=== PATIENT | female | born 1960 | race African-American/Black ===

== ENCOUNTER 2018-04-20 17:14 | Emergency (ER) | payer OTHER ==
[2018-04-20] MEDS ORDERED: ONDANSETRON *ODT* 4 MG TABLET SL ONE ×2 (17:18→21:54)
--- NOTE | 2018-04-20 17:18 | PDOC ---
Rapid Medical Evaluation Time Seen by Provider: 04/20/18 17:15 Medical Evaluation: Allergies Allergy/AdvReac Type Severity Reaction Status Date / Time No Known Allergies Allergy Unverified 06/10/12 19:06 04/20/18 17:15 I performed a brief in-person evaluation of this patient. Chief complaint: Abdominal pain and nausea. Hx diverticulosis. Pertinent physical exam findings: In distress secondary to pain. No focal abdominal tenderness. I have ordered the following: EKG, CBC, CMP, lipase, UA/culture. Patient will proceed to the ED for further evaluation. Discharge Disposition - Diagnosis Nausea - Referrals - Patient Instructions - Post Discharge Activity
[2018-04-20 17:20] VITALS: BMI 29.2
[2018-04-20] MEDS ORDERED: ONDANSETRON *ODT* 4 MG TABLET ONE ×2 (17:20→22:09)
--- NOTE | 2018-04-20 17:28 | PDOC ---
History of Present Illness - General Chief Complaint: Pain Stated Complaint: STOMACH PAINS Time Seen by Provider: 04/20/18 17:15 - History of Present Illness Initial Comments: 58 year old female with history of myasthenia gravis (s/p thymectomy and on daily prednisone 20MG) presenting with nausea, vomiting, and abdominal discomfort for the past week. Upon detailed questioning, patient was stopped her cellcept (mycofenalate mofetil) 2 months ago becuase of insurance issues but then restarted it approximately one week ago. She recalls that these symptoms started after the re-initiation of cellcept. The vomiting is NBNB and and abdominal discomfort is mostly left upper quadrant. She has had some diarrhea over the last few days as well but no BMs over the last day. She does have some chills occasionally. Denies any fevers, chest pain, visual symptoms, or urinary symptoms. 04/20/18 17:49 Past History - Past Medical History Allergies/Adverse Reactions: Allergies Allergy/AdvReac Type Severity Reaction Status Date / Time No Known Allergies Allergy Unverified 04/20/18 17:17 Home Medications: Ambulatory Orders Mycophenolate Mofetil [Cellcept] 500 mg PO DAILY 06/10/12 predniSONE [Deltasone -] 20 mg PO DAILY 06/10/12 COPD: No Other medical history: diverticulosis, myesthenia gravis - Suicide/Smoking/Psychosocial Hx Smoking Status: No Smoking History: Former smoker Have you smoked in the past 12 months: No Number of Cigarettes Smoked Daily: 0 If you are a former smoker, when did you quit?: 25 years ago Information on smoking cessation initiated: No Hx Alcohol Use: No Drug/Substance Use Hx: No Substance Use Type: None Review of Systems - Review of Systems Constitutional: Yes: Chills. No: Diaphoresis, Fever, Loss of Appetite HEENTM: No: Blurred Vision, Tearing, Double Vision Respiratory: No: Cough, Orthopnea, Shortness of Breath Cardiac (ROS): No: Chest Pain, Irregular Heart Rate, Lightheadedness, Palpitations, Syncope, Chest Tightness ABD/GI: Yes: Diarrhea, Nausea, Poor Fluid Intake, Vomiting, Abdominal cramping. No: Blood Streaked Bowels, Tarry Stools : No: Dysuria, Discharge, Flank Pain, Hematuria, Testicular Mass Musculoskeletal: No: Back Pain, Joint Pain, Joint Swelling Integumentary: No: Lesions, Lumps, Pallor Neurological: No: Headache, Numbness, Paresthesia Psychiatric: No: Anxiety, Depression Hematologic/Lymphatic: No: Anemia, Blood Clots, Easy Bleeding *Physical Exam - Vital Signs Last Vital Signs Temp Pulse Resp BP Pulse Ox 99.1 F 100 H 20 150/76 100 04/20/18 17:17 04/20/18 17:17 04/20/18 17:17 04/20/18 17:17 04/20/18 17:17 - Physical Exam General Appearance: Yes: Nourished, Appropriately Dressed. No: Apparent Distress HEENT: positive: EOMI, TISHA, Normal Voice. negative: Normal ENT Inspection ( dry mucous membranes) Neck: positive: Trachea midline, Normal Thyroid, Supple. negative: Tender, Rigid Respiratory/Chest: positive: Lungs Clear, Normal Breath Sounds. negative: Chest Tender, Respiratory Distress, Accessory Muscle Use Cardiovascular: positive: Regular Rhythm, Regular Rate Gastrointestinal/Abdominal: positive: Flat, Soft, Increased Bowel Sounds. negative: Normal Bowel Sounds, Tender Lymphatic: negative: Adenopathy, Tenderness Musculoskeletal: positive: Normal Inspection. negative: Decreased Range of Motion Extremity: positive: Normal Capillary Refill, Normal Inspection, Normal Range of Motion. negative: Tender Integumentary: positive: Normal Color, Dry, Warm Neurologic: positive: Fully Oriented, Alert, Normal Mood/Affect, Normal Response , Motor Strength 5/5 Moderate Sedation - Procedure Monitoring Vital Signs: Procedure Monitoring Vital Signs Temperature 99.1 F 04/20/18 17:17 Pulse Rate 100 H 04/20/18 17:17 Respiratory Rate 20 04/20/18 17:17 Blood Pressure 150/76 04/20/18 17:17 O2 Sat by Pulse Oximetry (%) 100 04/20/18 17:17 ED Treatment Course - LABORATORY CBC & Chemistry Diagram: 04/20/18 17:30 04/20/18 17:30 - Medications Given in the ED: ED Medications Discontinued Medications Generic Name Dose Route Start Last Admin Trade Name Freq PRN Reason Stop Dose Admin Ondansetron HCl 4 mg 04/20/18 17:18 04/20/18 17:20 Zofran Odt - SL 04/20/18 17:19 4 mg ONCE ONE Administration Medical Decision Making - Medical Decision Making 58 year old with nausea, vomiting, and diarrhea after restarting her mycophenolate mofetil . However, she also has history of diverticulitis so this is an other diagnosis that needs to be evaluated. Labs WNL, UA pending, and patient given IV NS, zofran, Pepcid/ Maalox with good relief of her symptoms. CT abdomen/ pelvis with iv contrast pending on sign out. 04/20/18 18:32 *DC/Admit/Observation/Transfer Diagnosis at time of Disposition: Nausea & vomiting Qualifiers: Vomiting type: unspecified Vomiting Intractability: non-intractable Qualified Code(s): R11.2 - Nausea with vomiting, unspecified - Discharge Dispostion Disposition: HOME Condition at time of disposition: Improved Decision to Admit order: No - Referrals Referrals: Brionna Sim MD [Primary Care Provider] - - Patient Instructions - Post Discharge Activity
[2018-04-20 17:42] LABS: BASO % 0.4 % (0-2.0); EOS % 0.6 % (0-4.5); HEMATOCRIT 38.9 % (32.4-45.2); HEMOGLOBIN 13.3 GM/dL (10.7-15.3); LYMPH % 5.8 % (8-40); MCH 31.9 pg (25.7-33.7); MCHC 34.3 g/dl (32.0-36.0); MEAN PLT VOLUME 8.3 fl (7.5-11.1); MONO % 8.5 % (3.8-10.2); NEUT % 84.7 % (42.8-82.8); PLATELET COUNT 255 K/MM3 (134-434); RBC 4.18 M/mm3 (3.60-5.2); RDW 14.2 % (11.6-15.6); WHITE BLOOD COUNT 8.4 K/mm3 (4.0-10.0)
[2018-04-20] MEDS ORDERED: SODIUM CHLORIDE 0.9% 500 ML INFUS.BAG IV ONE (17:46)
[2018-04-20] MEDS ORDERED: MAG HYDROX/AL HYDROX/SIMETH 30 ML UNIT-DOSE CUP PO ONE (17:57)
[2018-04-20] MEDS ORDERED: FAMOTIDINE 20 MG/50 ML IVPB 20 MG/50 ML MG IVPB ONE ×2 (17:57→18:19)
[2018-04-20 18:16] LABS: ALBUMIN 4.2 g/dl (3.4-5.0); ALK PHOS 70 U/L (45-117); ANION GAP 8 MMOL/L (8-16); BILIRUBIN,TOTAL 1.1 mg/dL (0.2-1); BLOOD UREA NITROGEN 20 mg/dL (7-18); CALCIUM 8.2 mg/dL (8.5-10.1); CHLORIDE 103 mmol/L (98-107); CO2 29 mmol/L (21-32); CREATININE 0.8 mg/dL (0.55-1.3); GLUCOSE,RANDOM 112 mg/dL (74-106); LIPASE 110 U/L (73-393); POTASSIUM 3.6 mmol/L (3.5-5.1); SGOT/AST 14 U/L (15-37); SGPT/ALT 29 U/L (13-61); SODIUM 140 mmol/L (136-145)
[2018-04-20] MEDS ORDERED: MAG HYDROX/AL HYDROX/SIMETH 30 ML UNIT-DOSE CUP ONE (18:19)
--- NOTE | 2018-04-20 18:20 | PDOC ---
Attending Attestation - HPI HPI: 04/20/18 18:27 The patient is a 58 year old female, with a significant past medical history of myasthenia gravis (s/p thymectomy, on daily prednisone 20mg) and diverticulitis , who presents to the emergency department with,1 week of nausea, vomiting, and diffuse abdominal pain. Patient recently came off her Cellcept for a month (due to insurance complications) and just prior to the onset of her symptoms restarted her medications at her normal dosage. She denies recent fevers, chills, headache or dizziness. She denies recent diarrhea or constipation. She denies recent dysuria, frequency, urgency or hematuria. She denies recent chest pain or shortness of breath. Allergies: NKDA Primary Care Physician: Dr. Sim <Melani Landeros - Last Filed: 04/20/18 18:27> - Resident Resident Name: Cristina Lemus - ED Attending Attestation I have performed the following: I have examined & evaluated the patient, The case was reviewed & discussed with the resident, I agree w/resident's findings & plan, Exceptions are as noted - Physicial Exam PE: GENERAL: Awake, alert, and fully oriented, in no acute distress HEAD: No signs of trauma EYES: PERRLA, EOMI, sclera anicteric, conjunctiva clear ENT: Auricles normal inspection, hearing grossly normal, nares patent, oropharynx clear without exudates. Dry mucosa NECK: Normal ROM, supple, no lymphadenopathy, JVD, or masses LUNGS: Breath sounds equal, clear to auscultation bilaterally. No wheezes, and no crackles HEART: Regular rate and rhythm, normal S1 and S2, no murmurs, rubs or gallops ABDOMEN: Soft, +LUQ tenderness, normoactive bowel sounds. +Guarding, no rebound. No masses EXTREMITIES: Normal range of motion, no edema. No clubbing or cyanosis. No cords, erythema, or tenderness NEUROLOGICAL: Cranial nerves II through XII grossly intact. Normal speech, normal gait. Motor and sensation intact SKIN: Warm, Dry, normal turgor, no rashes or lesions noted. - Medical Decision Making Pt with 99.1 temp orally, will check rectal temp. She states that the vomiting started a few days after restarting her mycophenolate, so while it may be a medication side effect, that would not be the most likely explanation. Will obtain CT a/p to further evaluate. <Nelda Oviedo - Last Filed: 04/21/18 07:46> Attestations - Attestations 04/20/18 18:27 Documentation prepared by Melani Landeros, acting as certified medical biller for Nelda Oviedo MD. <Melani Landeros - Last Filed: 04/20/18 18:27>
[2018-04-20 19:29] LABS: URINE APPEARANCE CLEAR; URINE BILIRUBIN NEGATIVE (<2.0 mg/dL); URINE COLOR STRAW; URINE GLUCOSE (UA) NEGATIVE (NEGATIVE); URINE KETONE NEGATIVE (NEGATIVE); URINE LEUK ESTERASE NEGATIVE (NEGATIVE); URINE NITRITE NEGATIVE (NEGATIVE); URINE PROTEIN NEGATIVE (NEGATIVE); URINE UROBILINOGEN NEGATIVE mg/dL (0.2-1.0)
[2018-04-20 19:31] LABS: EPI CELLS RARE /HPF (FEW); URINE MUCUS RARE
[2018-04-20] MEDS ORDERED: METOCLOPRAMIDE HCL INJECTION 10 MG/2 ML VIAL IVPUSH ONE (19:39)
--- NOTE | 2018-04-20 19:40 | PDOC ---
*Physical Exam - Vital Signs Last Vital Signs Temp Pulse Resp BP Pulse Ox 99.1 F 100 H 20 150/76 100 04/20/18 17:17 04/20/18 17:17 04/20/18 17:17 04/20/18 17:17 04/20/18 17:17 - Physical Exam General Appearance: Yes: Nourished HEENT: positive: Normal Voice, Hearing Grossly Normal Neck: positive: Trachea midline, Supple Gastrointestinal/Abdominal: positive: Other (Initial exam: LLQ rebound; Repeat exam: no TTP, no peritoneal sign) Extremity: positive: Normal Capillary Refill, Normal Inspection Integumentary: positive: Normal Color, Dry, Warm Neurologic: positive: Fully Oriented, Alert Heart Score/ECG Review - ECG Impressions Comment:: 04/20/18 21:27 NSR HR 82, no JALEEL/STD/TWI ED Treatment Course - LABORATORY CBC & Chemistry Diagram: 04/20/18 17:30 04/20/18 17:30 - ADDITIONAL ORDERS Additional order review: Laboratory Results 04/20/18 04/20/18 19:20 17:30 Sodium 140 Potassium 3.6 Chloride 103 Carbon Dioxide 29 Anion Gap 8 BUN 20 H Creatinine 0.8 Creat Clearance w eGFR > 60 Random Glucose 112 H Calcium 8.2 L Total Bilirubin 1.1 H AST 14 L ALT 29 Alkaline Phosphatase 70 Total Protein 7.0 Albumin 4.2 Lipase 110 Urine Color Straw Urine Appearance Clear Urine pH 6.0 Ur Specific [place] 1.016 Urine Protein Negative Urine Glucose (UA) Negative Urine Ketones Negative Urine Blood 2+ H Urine Nitrite Negative Urine Bilirubin Negative Urine Urobilinogen Negative Ur Leukocyte Esterase Negative Urine WBC (Auto) <1 Urine RBC (Auto) 3 Ur Epithelial Cells Rare Urine Mucus Rare 04/20/18 17:30 RBC 4.18 MCV 93.0 MCHC 34.3 RDW 14.2 MPV 8.3 Neutrophils % 84.7 H Lymphocytes % 5.8 L Monocytes % 8.5 Eosinophils % 0.6 Basophils % 0.4 - Medications Given in the ED: ED Medications Discontinued Medications Generic Name Dose Route Start Last Admin Trade Name Freq PRN Reason Stop Dose Admin Al Hydroxide/Mg Hydroxide 30 ml 04/20/18 17:57 04/20/18 18:25 Mylanta Oral Suspension - PO 04/20/18 17:58 30 ml ONCE ONE Administration Famotidine/Sodium Chloride 20 mg in 50 mls @ 100 mls/hr 04/20/18 17:57 18:25 Pepcid 20 Mg Premixed Ivpb - IVPB 04/20/18 18:26 100 mls/hr ONCE ONE Administration Ondansetron HCl 4 mg 04/20/18 17:18 04/20/18 17:20 Zofran Odt - SL 04/20/18 17:19 4 mg ONCE ONE Administration Sodium Chloride 1,000 ml 04/20/18 17:46 04/20/18 18:12 Normal Saline - IV 04/20/18 17:47 1,000 ml ONCE ONE Administration Medical Decision Making - Medical Decision Making 04/20/18 19:39 Patient signed out by Dr. Lemus (Resident) and Dr. Oviedo (Attending) 58 year old female with a PMH of MG (s/p thymectomy, Prednisone (20 mg QD)) and diverticulitis presents w/1 week h/o N/V, diffuse abdominal pain. Non- adherence to Cellcept, associates SiSx with recently restarting her medication. Basic labs and belly labs unremarkable. UA and CT Abdomen pending. 04/20/18 19:49 Patient reassessed @ bedside. Continues to c/o pain, nausea and 1 episode of emesis. My belly exam shows peritoneal sign (rebound) in LLQ. S/p 4 mg Zofran. Will give Reglan. CT scan pending 04/20/18 19:54 UA shows 2+ blood, rare epithelial cells Patient @ CT 04/20/18 20:[address] shows no diverticulitis 04/20/18 20:58 CT negative for diverticulitis Patient reassessed @ bedside VSS Symptomatically improved At this time, suspect patient's SiSx 2/2 to restarting her Cellcept as diagnosis of exclusion, however to r/o abdominal pain N/V as anginal equivalent , will obtain Troponin and repeat EKG. 04/20/18 21:26 Repeat EKG shows NSR HR 82, no JALEEL/STD/TWI - non ischemic EKG 04/20/18 21:54 Troponin (-) Patient discharged home with return precautions, neurology follow-up and GI referral. Clinical Impression: N/V as medication side effect I discussed the physical exam findings, ancillary test results and final diagnoses with the patient. I answered all of the patient's questions. The patient was satisfied with the care received and felt comfortable with the discharge plan and treatment plan. The patient will return to the Emergency Department with any new, persistent or worsening symptoms. *DC/Admit/Observation/Transfer Diagnosis at time of Disposition: Nausea & vomiting Qualifiers: Vomiting type: unspecified Vomiting Intractability: non-intractable Qualified Code(s): R11.2 - Nausea with vomiting, unspecified - Discharge Dispostion Disposition: HOME Condition at time of disposition: Improved Decision to Admit order: No - Referrals Referrals: Brionna Sim MD [Primary Care Provider] - Dheeraj Starr [Non Staff, Medical] - - Patient Instructions Additional Instructions: You were evaluated today for abdominal pain, nausea/vomiting. All of your labs, a cat scan of your abdomen and your urine showed no concerning findings. At this time you are safe for discharge home. Please follow up with your neurologist, Dr. Starr, in the next three days regarding your Myasthenia Gravis medications. Your care is not complete until are evaluated by neurology. We are also providing a referral to a hospice coordinator should your abdominal pain persist. You may also call your insurance company for a list of doctors. Return to the Emergency Department for any new/worsening/concerning symptoms. - Post Discharge Activity Forms/Work/School Notes: Back to Work
[2018-04-20] MEDS ORDERED: METOCLOPRAMIDE HCL INJECTION 10 MG/2 ML VIAL ONE (19:42)
[2018-04-20 22:20] VITALS: BP 140/72; PULSE 85; TEMP 98.7
--- NOTE | 2018-04-21 11:53 | EKG ---
Test Reason : Blood Pressure : / mmHG Vent. Rate : 082 BPM Atrial Rate : 082 BPM P-R Int : 174 ms QRS Dur : 082 ms QT Int : 370 ms P-R-T Axes : 065 -12 023 degrees QTc Int : 432 ms NORMAL SINUS RHYTHM POSSIBLE ANTERIOR INFARCT (CITED ON OR BEFORE 20-APR-2018) ABNORMAL ECG WHEN COMPARED WITH ECG OF 20-APR-2018 17:52, PREMATURE VENTRICULAR COMPLEXES ARE NO LONGER PRESENT QT HAS SHORTENED Confirmed by MD CHYNA, TANMAY ([id number]) on 04/21/2018 11:53:10 AM Referred By: Confirmed By:TANMAY CLEMENTE MD
--- NOTE | 2018-04-23 11:57 | EKG ---
Test Reason : Blood Pressure : / mmHG Vent. Rate : 100 BPM Atrial Rate : 079 BPM P-R Int : 180 ms QRS Dur : 090 ms QT Int : 384 ms P-R-T Axes : 037 -10 014 degrees QTc Int : 495 ms POOR DATA QUALITY, INTERPRETATION MAY BE ADVERSELY AFFECTED SINUS RHYTHM WITH FREQUENT and consecutive PREMATURE VENTRICULAR COMPLEXES MINIMAL VOLTAGE CRITERIA FOR LVH, MAY BE NORMAL VARIANT POSSIBLE ANTERIOR INFARCT , AGE UNDETERMINED ABNORMAL ECG NO PREVIOUS ECGS AVAILABLE Confirmed by EMILY SALAZAR MD ([id number]) on 04/23/2018 11:57:12 AM Referred By: Confirmed By:EMILY SALAZAR MD
== END 2018-04-20 22:20 | disposition home or self-care (01) ==
LOC: JER 17:14
PROC: 3E033GC Introduction of Other Therapeutic Substance into Peripheral Vein, Percutaneous Approach (ICD-10-PCS; principal; 2018-04-20)
PROC: 3E033GC Introduction of Other Therapeutic Substance into Peripheral Vein, Percutaneous Approach (ICD-10-PCS; 2018-04-20)
DX: R11.2 Nausea with vomiting, unspecified (principal); G70.00 Myasthenia gravis without (acute) exacerbation; Z79.52 Long term (current) use of systemic steroids; Z87.19 Personal history of other diseases of the digestive system; E89.89 Other postprocedural endocrine and metabolic complications and disorders
CPT/HCPCS: 36415; 74177-TC; 80053; 81003; 81015; 82550; 82553; 83690; 84484; 85025; 87086; 93005; 93010; 99281-25; Q0162

== ENCOUNTER 2020-01-03 10:39 | Emergency (ER) | payer OTHER ==
--- NOTE | 2020-01-03 10:47 | PDOC ---
Rapid Medical Evaluation Time Seen by Provider: 01/03/20 10:44 Medical Evaluation: Allergies Allergy/AdvReac Type Severity Reaction Status Date / Time No Known Allergies Allergy Verified 01/03/20 10:42 01/03/20 10:44 CC: rt breast soreness with drainage x 3 weeks, had breast reduction in 2005 and noticed opening at incision line. Has mammo and u/s on the at [facility]. Exam: noted indented area to rt breast incsion line centrally. no active drainage. area firm plan: u/s, ? abx Discharge Disposition - Diagnosis Soreness breast - Referrals - Patient Instructions - Post Discharge Activity
[2020-01-03 11:00] VITALS: BP 150/100; PULSE 99; TEMP 98.8; BMI 28.3
--- OUTSIDE RECORDS SUMMARY | 2020-01-03 11:00 | XMS ---
:1960 Author Organization [facility] Support Name Relationship Address Phone UNKNOWN Unavailable Unavailable Unavailable FOR [facility] Unavailable [address] [place] [address] MANUEL NOE SISTER [address] [place] [address] FRANNY SULTANA [address] [address] Re-disclosure Warning The records that you are about to access may contain information from federally- assisted alcohol or drug abuse programs. If such information is present, then the following federally mandated warning applies: This information has been disclosed to you from records protected by federal confidentiality rules (42 CFR part 2). The federal rules prohibit you from making any further disclosure of this information unless further disclosure is expressly permitted by the written consent of the person to whom it pertains or as otherwise permitted by 42 CFR part 2. A general authorization for the release of medical or other information is NOT sufficient for this purpose. The Federal rules restrict any use of the information to criminally investigate or prosecute any alcohol or drug abuse patient.The records that you are about to access may contain highly sensitive health information, the redisclosure of which is protected by Article 27-F of the [facility] Public Health law. If you continue you may haveaccess to information: Regarding HIV / AIDS; Provided by facilities licensed or operated by the [facility] Office of Mental Health; or Provided by the [facility] Office for People With Developmental Disabilities. If such information is present, then the following [facility] mandated warning applies: This information has been disclosed to you from confidential records which are protected by state law. State law prohibits you from making any further disclosure of this information without the specific written consent of the person to whom it pertains, or as otherwise permitted by law. Any unauthorized further disclosure in violation of state law may result in a fine or long-term sentence or both. A general authorization for the release of medical or other information is NOT sufficient authorization for further disclosure. Insurance Providers Payer name Policy type Policy ID Covered Covered libertarian's Policy P britt / Coverage libertarian ID relationship to Gonzalez Inf ormation type gonzalez [employer] HMO [id number] [place] [id number] HEALTH PLAN [place] [id number] 1 [facility] [id number]
--- NOTE | 2020-01-03 12:09 | PDOC ---
History of Present Illness - General Chief Complaint: Wound Stated Complaint: BREAST PAIN Time Seen by Provider: 01/03/20 10:44 - History of Present Illness Initial Comments: 59yo F with PMHx of myasthenia gravis, thymectomy in 1992, and bilateral breast reduction in 2005 who presents with right breast pain. The pain started about 2- 3 weeks ago, where she noticed discomfort from the center of her chest radiating around her entire right breast, mostly around her surgical scars. The medial edge of her surgical scar has a small pit which is filled with black debris. Patient denied any recent trauma or associated symptoms, but said she lost about 10 pounds in the last three weeks because of her constipation issues. Patient's mother and cousin had breast cancer. She does regular home breast exams and has not noticed anything different besides her pain. Of note, about 3-5 months ago patient started experiencing right abdominal pain. She got a full medical work-up about 2 months ago with extensive imaging including US, x-ray, and MRI that was not concerning for any pathology but showed constipation. About 2 weeks ago, she had a CT with and without contrast taken, of which she does not know the results. The workup was done at [facility], and her PCP is Dr. Dominic Alvarez. Patient has a mammogram scheduled for Jan 05 and a colonoscopy in 2 weeks. Had a mammogram last year that showed no abnormalities. Past History - Medical History Allergies/Adverse Reactions: Allergies Allergy/AdvReac Type Severity Reaction Status Date / Time No Known Allergies Allergy Verified 01/03/20 10:42 Home Medications: Ambulatory Orders Mycophenolate Mofetil [Cellcept] 500 mg PO BID 06/10/12 predniSONE [Deltasone -] 20 mg PO DAILY 06/10/12 Cephalexin [Keflex] 500 mg PO BID 5 Days #10 capsule 01/03/20 COPD: No - Psycho-Social/Smoking History Smoking Status: No Smoking History: Never smoked Have you smoked in the past 12 months: No Number of Cigarettes Smoked Daily: 0 If you are a former smoker, when did you quit?: 25 years ago - Substance Abuse Hx (Audit-C & DAST Scrn) How often the patient has a drink containing alcohol: Never Score: In Men: 4 or > Positive; In Women: 3 or > Positive: 0 Screen Result (Pos requires Nsg. Audit-10AR): Negative In the last yr the pt used illegal drug/Rx for NonMed reason: No Score: Yes response is considered Positive: 0 Screen Result (Positive result requires Nsg. DAST-10): Negative Review of Systems - Review of Systems Comments:: Constitutional: denied fevers, chills, diaphoresis, changes in appetite/PO intake, endorsed recent weight loss HEENTM: endorsed occasional headaches, denied changes in vision/hearing/tasting/smelling, runny nose, sore throat Respiratory: denied SOB, CP, dry/productive cough, congestion Cardiac: denied palpitations, dizziness Abdomen/GI: denied pain, NVDC : denied dysuria, endorsed urinary frequency MSK: endorsed right breast pain, denied back pain, joint pain/swelling/stiffness Neurological: denied numbness, tingling, dizziness, weakness Psychiatric: endorsed anxiety due to her symptoms *Physical Exam - Vital Signs Last Vital Signs Temp Pulse Resp BP Pulse Ox 98.8 F 99 H 16 150/100 100 01/03/20 10:44 01/03/20 10:44 01/03/20 10:44 01/03/20 10:44 01/03/20 10:44 - Physical Exam GENERAL: AAF, appears younger than stated age, thin body habitus, AAOx4 showing mild signs of distressdue to symptoms HEAD: Normal with no signs of trauma, good dentition EYES: PERRL, direct and consensual pupillary reflexes intact bilaterally, extraocular movements intact bilaterally EARS, NOSE, THROAT: Moist mucous membranes NECK: Normal range of motion, no lymphadenopathy or masses noted, large central scar from thymectomy LUNGS: CTAB. No wheezes, and no crackles. No accessory muscle use HEART: RRR, normal S1 and S2 without murmur ABDOMEN: Soft, nontender, not distended/protuberant, active bowel sounds EXTREMITIES: 2+ radial and dorsalis pedis pulses, warm to touch bilaterally, nontender to palpation, no peripheral edema appreciated, no active lesions or ulcers noted on feet bilaterally including interdigital web spaces NEUROLOGICAL: Cranial nerves II-XII grossly intact. Normal speech with symmetricalfacial movements. Sensation intact bilaterally. Normal gait PSYCHIATRIC: Cooperative and interactive, responds appropriately. Good eye contact. "I am worried" mood and anxious affect congruent with stated mood SKIN: large central healed scar on chest, bilateral healed scars on breasts, R breast scar has a small pit filled with debris on medical aspect of scar ED Treatment Course - LABORATORY CBC & Chemistry Diagram: 01/03/20 12:10 01/03/20 12:10 - RADIOLOGY Radiology Studies Ordered: Category Date Time Status CXRPORT [CHEST X-RAY PORTABLE*] [RAD] Stat Radiology 01/03/20 11:42 Ordered Medical Decision Making - Medical Decision Making 59yo F with PMHx of myasthenia gravis, thymectomy in 1992, and bilateral breast reduction in 2005 who presents with right breast pain. - CBC - CMP - trop - EKG - CXR 01/03/20 12:[address] Dominic Alvarez at [phone] - person who answered the phone "Bobby" was unable to connect me to her chief program officer, said that I called an urgent care center and does not know if Dr. Alvarez work there. Took down my information and will call back. 01/03/20 13:11 Spoke to the legal secretary receptionist of Dr. Alvarez, he is not in office today but will be tomorrow. I left a message for the doctor, informing about the ED visit, upcoming scheduled mammogram, and the indication for a breast US. Gauntlet Pairer said she will relay the message tomorrow. (Above number was incorrect). 01/03/20 14:09 UA remarkable for a mild UTI - will discharge patient with keflex. Patient stabilized for discharge. Explained importance to follow up with PCP for breast US and to go to her mammogram appointment. Discharge - Discharge Information Problems reviewed: Yes Clinical Impression/Diagnosis: Soreness breast Condition: Stable Disposition: HOME - Admission No - Additional Discharge Information Prescriptions: Cephalexin [Keflex] 500 mg PO BID 5 Days #10 capsule - Follow up/Referral Referrals: Dominic Alvarez MD [Primary Care Provider] - - Patient Discharge Instructions Additional Instructions: You came to the emergency department because you were having pain around your right breast. We did some labs and imaging to rule out any dangerous causes. We found that you have a mild urinary tract infection, for which we will send you home on antibiotics called keflex. The other lab results and imaging came back normal, and you are stable and well to go home. We also called your primary care doctor Dr. Alvarez and we left a message for him about your visit in our ED and that you need follow up with him for a breast ultrasound. Further instructions: - continue taking your home medications as usual - take the antibiotic medication keflex two times per day for 5 days - make sure to go to your mammogram appointment on January 05 at [facility] - see your primary care doctor within 72 hours and speak with him about getting a breast ultrasound (non-invasive imaging) - if you experience worsening symptoms such as worsening of your breast pain, chest pain, shortness of breath, or any other concerning symptoms, please call 911 or report to your nearest emergency department. It was a pleasure taking care of you. Print Language: FRENCH - Post Discharge Activity Work/Back to School Note: Back to Work
[2020-01-03 12:24] LABS: BASO % 0.8 % (0-2.0); EOS % 0.6 % (0-4.5); HEMATOCRIT 39.4 % (32.4-45.2); HEMOGLOBIN 12.6 GM/dL (10.7-15.3); LYMPH % 30.6 % (8-40); MCH 29.1 pg (25.7-33.7); MCHC 31.9 g/dl (32.0-36.0); MEAN CELL VOLUME 91.2 fl (80-96); MEAN PLT VOLUME 7.7 fl (7.5-11.1); MONO % 10.4 % (3.8-10.2); NEUT % 57.6 % (42.8-82.8); PLATELET COUNT 280 K/MM3 (134-434); RBC 4.32 M/mm3 (3.60-5.2); RDW 14.4 % (11.6-15.6); WHITE BLOOD COUNT 7.1 K/mm3 (4.0-10.0)
[2020-01-03 12:27] LABS: EPI CELLS 31 /uL (0-25.1); HYALINE CASTS 0 /uL (0-3.1); PH,URINE 6.5 (5.0-8.0); URINE APPEARANCE CLOUDY; URINE BACTERIA 725 /uL (0-1359); URINE BILIRUBIN NEGATIVE (NEGATIVE); URINE COLOR YELLOW; URINE GLUCOSE (UA) NEGATIVE (NEGATIVE); URINE KETONE NEGATIVE (NEGATIVE); URINE LEUK ESTERASE TRACE (NEGATIVE); URINE NITRITE NEGATIVE (NEGATIVE); URINE PROTEIN NEGATIVE (NEGATIVE); URINE RBC 9 /uL (0-23.9); URINE UROBILINOGEN 0.2 mg/dL (0.2-1.0); URINE WBC 23 /uL (0-25.8)
[2020-01-03 12:45] LABS: CHLORIDE 105 mmol/L (98-107); POTASSIUM 3.7 mmol/L (3.5-5.1); SODIUM 141 mmol/L (136-145)
[2020-01-03 12:47] LABS: CALCIUM 9.1 mg/dL (8.5-10.1)
[2020-01-03 12:48] LABS: ANION GAP 6 MMOL/L (8-16); BLOOD UREA NITROGEN 16.4 mg/dL (7-18); CO2 30 mmol/L (21-32); GLUCOSE,RANDOM 102 mg/dL (74-106)
[2020-01-03 12:51] LABS: CREATININE 0.8 mg/dL (0.55-1.3); SGOT/AST 12 U/L (15-37); SGPT/ALT 25 U/L (13-61)
[2020-01-03 12:52] LABS: BILIRUBIN,TOTAL 0.8 mg/dL (0.2-1)
[2020-01-03 12:54] LABS: ALK PHOS 61 U/L (45-117)
--- NOTE | 2020-01-03 13:28 | PDOC ---
Documentation entered by Deni Patten SCRIBE, acting as scribe for Nato Arellano MD. Nato Arellano MD: This documentation has been prepared by the Earline carrillo Xhesika, SCRIBE, under my direction and personally reviewed by me in its entirety. I confirm that the documentation accurately reflects all work, treatment, procedures, and medical decision making performed by me. Attending Attestation - Resident Resident Name: Ghislaine Castañeda - ED Attending Attestation I have performed the following: I have examined & evaluated the patient, The case was reviewed & discussed with the resident, I agree w/resident's findings & plan, Exceptions are as noted - HPI HPI: 01/03/20 11:03 59y/o F with a PMH of R breast Reduction (2005) who presents to the ED for R breast soreness, pain and drainage [id number]. Pt noticed opening at incision line. Pt state she has an appointment on 01/05 for a mammogram and ultrasound. Pt states she lost 10lbs in the past few weeks which she states is related to her "constipation/ stomach problems." Pt denies any associated symptoms. Pt denies nipple drainage. Pt denies CP, SOB. Denies fevers, chills, N/V/D. Allergies: NKDA PCP:Dominic Alvarez - Physicial Exam PE: 01/03/20 11:06 Vitals: Triage Vital signs reviewed General Appearance: no acute distress, well nourished well developed Throat: Posterior oropharynx without erythema, mucous membranes moist. +cervical adenopathy Chest Wall: Nontender. +s/p R breast reduction scar (2005) Cardiac: Regular rate and rhythm, no murmurs, no rubs, no gallops, Lungs: Clear to auscultation bilateral, good air movement bilaterally, Abdomen: Soft, nondistended, normal bowel sounds, nontender to palpation Extremities: Full range of motion to all extremities, no cyanosis, clubbing, or edema Skin: Warm and dry, no rashes or lesions, no petechiae Neuro: AOX3; Cranial Nerves 2-12 grossly c intact, Strength intact to all extremities, Sensation intact to all extremities Psych: normal mood, normal affect - Medical Decision Making 01/03/20 13:28 Normal breast exam no discharge no masses noted patient has follow-up for 3D mammography in 3 days Several phone calls made to patients PCP. She will follow-up with her doctors as an outpatient to ensure breast pain is not secondary to cancer Findings, need for follow-up and strict return instruction discussed with patient. Discharge - Discharge Information Problems reviewed: Yes Clinical Impression/Diagnosis: Soreness breast - Follow up/Referral Referrals: Dominic Alvarez MD [Primary Care Provider] - - Patient Discharge Instructions - Post Discharge Activity
--- NOTE | 2020-01-03 15:15 | EKG ---
Test Reason : Blood Pressure : / mmHG Vent. Rate : 088 BPM Atrial Rate : 088 BPM P-R Int : 182 ms QRS Dur : 082 ms QT Int : 372 ms P-R-T Axes : 052 -10 049 degrees QTc Int : 450 ms NORMAL SINUS RHYTHM CANNOT RULE OUT ANTERIOR INFARCT (CITED ON OR BEFORE 20-APR-2018) ABNORMAL ECG WHEN COMPARED WITH ECG OF 20-APR-2018 21:14, NO SIGNIFICANT CHANGE WAS FOUND Confirmed by BERT FRANCIS MD ([id number]) on 01/03/2020 3:15:32 PM Referred By: Confirmed By:BERT FRANCIS MD
== END 2020-01-03 14:10 | disposition home or self-care (01) ==
LOC: JER 10:39
DX: N64.4 Mastodynia (principal)
CPT/HCPCS: 36415; 71046-TC-FY; 80053; 81003; 82550; 82553; 84484; 85025; 93005; 93010; 99285-25

== ENCOUNTER 2023-02-20 12:55 | Observation (INO) | payer OTHER ==
[2023-02-20] MEDS ORDERED: SODIUM CHLORIDE 0.9% 500 ML INFUS.BAG IV ONE (13:29)
[2023-02-20] MEDS ORDERED: ONDANSETRON 4 MG/2 ML VIAL IVPUSH ONE (13:30)
[2023-02-20] MEDS ORDERED: ACETAMINOPHEN 1000 MG/100 ML BAG IVPB ONE (13:30)
[2023-02-20] MEDS ORDERED: ACETAMINOPHEN INJECTION 100 ML IVPB ONE ×2 (14:20→22:48)
[2023-02-20] MEDS ORDERED: ONDANSETRON 4 MG/2 ML VIAL ONE ×2 (14:20→20:16)
[2023-02-20 14:50] LABS: BASO % 0.3 % (0-2.0); EOS % 0.1 % (0-4.5); HEMATOCRIT 34.4 % (32.4-45.2); HEMOGLOBIN 11.4 GM/dL (10.7-15.3); LYMPH % 12.1 % (8-40); MCHC 33.1 g/dl (32.0-36.0); MEAN CELL VOLUME 90.4 fl (80-96); MEAN PLT VOLUME 7.8 fl (7.5-11.1); MONO % 7.5 % (3.8-10.2); PLATELET COUNT 289 10^3/uL (134-434); RBC 3.81 M/mm3 (3.60-5.2); RDW 14.1 % (11.6-15.6); WHITE BLOOD COUNT 7.8 K/mm3 (4.0-10.0)
[2023-02-20 15:14] LABS: POTASSIUM 3.7 mmol/L (3.5-5.1)
[2023-02-20 15:20] LABS: CALCIUM 8.9 mg/dL (8.5-10.1)
[2023-02-20 15:21] LABS: ALBUMIN 3.5 g/dl (3.4-5.0); BLOOD UREA NITROGEN 15.8 mg/dL (7-18); MAGNESIUM 2.2 mg/dL (1.8-2.4)
[2023-02-20 15:23] LABS: LACTIC ACID 2.3 mmol/L (0.4-2.0)
[2023-02-20 15:24] LABS: CREATININE 0.9 mg/dL (0.55-1.3)
[2023-02-20 15:25] LABS: BILIRUBIN,TOTAL 0.9 mg/dL (0.2-1)
[2023-02-20] MEDS ORDERED: METOCLOPRAMIDE HCL INJECTION 10 MG/2 ML VIAL IVPB ONE (15:39)
[2023-02-20] MEDS ORDERED: METOCLOPRAMIDE HCL INJECTION 10 MG/2 ML VIAL ONE (15:42)
[2023-02-20] MEDS ORDERED: MAGNESIUM SULF 50% (8.12 MEQ/2 ML-1 GM VIAL) IVPB ONE (18:32)
[2023-02-20] MEDS ORDERED: MAGNESIUM SULFATE IN WATER 2 GM/50 ML IVPB IVPB ONE (18:36)
[2023-02-20] MEDS: SODIUM CHLORIDE 1,000 ML IV SCH (20:11)
[2023-02-20] MEDS: ONDANSETRON 4 MG/2 ML VIAL IVPUSH PRN (20:18)
[2023-02-20] MEDS ORDERED: ACETAMINOPHEN 1000 MG/100 ML BAG IVPB PRN (22:29)
[2023-02-21] MEDS ORDERED: ASPIRIN 81 MG CHEWABLE TABLETS PO ONE (01:02)
[2023-02-21] MEDS ORDERED: ASPIRIN 81 MG CHEWABLE TABLETS ONE (01:15)
[2023-02-21] MEDS ORDERED: ONDANSETRON 4 MG/2 ML VIAL ONE (01:27)
[2023-02-21] MEDS: ONDANSETRON 4 MG/2 ML VIAL IVPUSH PRN (01:31)
[2023-02-21] MEDS ORDERED: LISINOPRIL 10 MG TABLET PO ONE (05:45)
[2023-02-21 08:09] LABS: BASO % 0.3 % (0-2.0); HEMATOCRIT 33.9 % (32.4-45.2); HEMOGLOBIN 11.5 GM/dL (10.7-15.3); MCH 30.6 pg (25.7-33.7); MCHC 33.9 g/dl (32.0-36.0); MEAN CELL VOLUME 90.3 fl (80-96); MEAN PLT VOLUME 7.7 fl (7.5-11.1); MONO % 5.9 % (3.8-10.2); NEUT % 82.8 % (42.8-82.8); PLATELET COUNT 292 10^3/uL (134-434); RBC 3.76 M/mm3 (3.60-5.2); RDW 13.8 % (11.6-15.6); WHITE BLOOD COUNT 7.3 K/mm3 (4.0-10.0)
[2023-02-21 08:42] LABS: POTASSIUM 4.1 mmol/L (3.5-5.1)
[2023-02-21 08:46] LABS: CALCIUM 8.6 mg/dL (8.5-10.1)
[2023-02-21 08:47] LABS: BLOOD UREA NITROGEN 10.1 mg/dL (7-18); MAGNESIUM 2.5 mg/dL (1.8-2.4)
[2023-02-21 08:50] LABS: CREATININE 0.8 mg/dL (0.55-1.3)
[2023-02-21] MEDS: HYDROCHLOROTHIAZIDE 12.5 MG CAPSULE (FP) PO SCH (09:27)
[2023-02-21] MEDS: MYCOPHENOLATE MOFETIL 250 MG CAPSULE PO SCH ×2 (09:27→15:56)
[2023-02-21] MEDS: PYRIDOSTIGMINE BROMIDE 60 MG TABLET PO SCH ×4 (09:27→22:39)
[2023-02-21] MEDS: predniSONE 20 MG TABLET (UD) PO SCH (09:27)
[2023-02-21 10:56] VITALS: RESP 18
[2023-02-21 12:24] VITALS: BMI 28.0
[2023-02-21] MEDS: SODIUM CHLORIDE 1,000 ML IV SCH (20:15)
[2023-02-21] MEDS: MYCOPHENOLATE MOFETIL 500 MG TABLET PO SCH (22:13)
[2023-02-22] MEDS: SODIUM CHLORIDE 1,000 ML IV SCH (04:10)
[2023-02-22] MEDS ORDERED: ACETAMINOPHEN 325 MG TABLET (FP) PO PRN (09:36)
[2023-02-22] MEDS ORDERED: LISINOPRIL 10 MG TABLET PO SCH (10:00)
[2023-02-22] MEDS: PYRIDOSTIGMINE BROMIDE 60 MG TABLET PO SCH ×3 (10:05→18:26)
[2023-02-22] MEDS: MYCOPHENOLATE MOFETIL 500 MG TABLET PO SCH (10:06)
[2023-02-22] MEDS: predniSONE 20 MG TABLET (UD) PO SCH (10:09)
[2023-02-22] MEDS: HYDROCHLOROTHIAZIDE 12.5 MG CAPSULE (FP) PO SCH (10:09)
[2023-02-22 18:08] VITALS: BP 127/89; PULSE 71; TEMP 98.7
== END 2023-02-22 19:16 | disposition home or self-care (01) ==
LOC: JER 12:55 → JERBED 18:15 → J4W 02-21 10:58
PROVIDERS: ADMIT Internal Medicine; ATTEND Internal Medicine
PROC: 3E033NZ Introduction of Analgesics, Hypnotics, Sedatives into Peripheral Vein, Percutaneous Approach (ICD-10-PCS; principal; 2023-02-20)
PROC: 3E033GC Introduction of Other Therapeutic Substance into Peripheral Vein, Percutaneous Approach (ICD-10-PCS; 2023-02-20)
PROC: 3E0337Z Introduction of Electrolytic and Water Balance Substance into Peripheral Vein, Percutaneous Approach (ICD-10-PCS; 2023-02-20)
DX: G70.00 Myasthenia gravis without (acute) exacerbation (principal); R07.9 Chest pain, unspecified; R77.8 Other specified abnormalities of plasma proteins; R11.2 Nausea with vomiting, unspecified; R51.9 Headache, unspecified; Z87.891 Personal history of nicotine dependence
CPT/HCPCS: 0241U-QW; 36415; 70450-TC; 71045-TC-FY; 80048; 80053; 82550; 82553; 83605; 83690; 83735; 84484; 85025; 87045; 87046; 93005; 93010; 93306-TC; 99285-25; G0378; J7517